=== PATIENT | male | born 1970 | race Two or more races ===

== ENCOUNTER 2024-06-22 00:07 | Emergency (ER) | payer BC ==
[~2024-06-22] VITALS: Ht 167.6 cm; Wt 79.4 kg
[2024-06-22] MEDS ORDERED: ROSUVASTATIN CA20 MG PO (00:53)
[2024-06-22] MEDS ORDERED: METOPROLOL SUCC50 MG PO (00:53)
[2024-06-22] MEDS ORDERED: SERTRALINE HCL50 MG PO (00:53)
[2024-06-22] MEDS ORDERED: BENAZEPRIL HCL10 MG PO (00:53)
[2024-06-22] MEDS ORDERED: ASPIRIN 325 MG TABLET.EC PO STA (01:01)
[2024-06-22] MEDS ORDERED: FAMOTIDINE/PF 20 MG/2 ML VIAL IV PUSH STA (01:07)
[2024-06-22] MEDS ORDERED: ASPIRIN 325 MG TABLET.EC PO ONE (01:12)
[2024-06-22] MEDS ORDERED: FAMOtidine 200mg/20ml VIAL ONE (01:13)
[2024-06-22] MEDS ORDERED: 0.9 % SODIUM CHLORIDE 1,000 ML IV ONE (01:15)
[2024-06-22] MEDS ORDERED: NITROGLYCERIN 0.4 MG TAB.SUBL SL SCH (01:15)
[2024-06-22 01:27] LABS: HEMATOCRIT 38.9 % (39.0-48.0); HEMOGLOBIN 13.5 g/dL (13-16.00); MEAN CELL VOLUME 90.7 fL (80.0-100.00); MEAN CORPUSCULAR HEMOGLOBIN 31.5 pg (27.00-32.0); MEAN CORPUSCULAR HGB CONC 34.7 g/dl (32.0-36.0); PLATELET COUNT 245 K/uL (150-450); RED BLOOD COUNT 4.28 M/uL (4.00-6.00); RED CELL DISTRIBUTION WIDTH 13.1 % (11.5-14.5)
[2024-06-22 01:36] LABS: INR 1.06; PARTIAL THROMBOPLASTIN TIME 29.1 SECONDS (22.0-34.0); PROTHROMBIN TIME 11.1 SECONDS (9.0-11.5)
[2024-06-22 01:59] LABS: ALBUMIN 3.8 gm/dL (3.4-5.0); BILIRUBIN TOTAL 0.29 mg/dL (0.3-1.2); CALCIUM 8.7 mg/dL (8.5-10.1); CREATININE SERUM 1.06 mg/dL (0.70-1.30); GFR 73.36; GLOBULINA 3.1 G/DL (2.4-3.5); POTASSIUM 3.97 mEq/L (3.5-5.1); TOTAL PROTEIN 6.9 gm/dL (6.4-8.2)
[2024-06-22] MEDS ORDERED: NITROGLYCERIN IN 5 % DEXTROSE 50 MG/250 ML BOTTLE IV ONE (03:39)
[2024-06-22] MEDS ORDERED: NITROGLYCERIN 250 ML IV SCH (03:45)
[2024-06-22] MEDS ORDERED: TICAGRELOR 90 MG TABLET PO STA (04:04)
[2024-06-22 08:43] LABS: PH,URINE 6.5 (5.0-8.0); URINE APPEARANCE Clear; URINE BILIRRUBIN Negative (NEGATIVE); URINE BLOOD Negative; URINE COLOR Yellow; URINE GLUCOSE Negative (NEGATIVE); URINE LEUKOCYTE Negative; URINE NITRATE Negative; URINE PROTEIN Negative (NEGATIVE); URINE UROBILINOGEN 0.2 E.U./dl
[2024-06-22 08:45] LABS: URINE BACTERIA 8.8 uL (0.0-1933); URINE RBC 4.1 uL (0.0-20.8); URINE WBC 3.5 uL (0.0-23.2)
[2024-06-22 08:58] LABS: URINE EPITHELIAL CELLS 0.6 uL (0.0-38.8)
[2024-06-22] MEDS ORDERED: ENOXAPARIN SODIUM 80 MG/0.8 ML SYRINGE SUBCUTANEO ONE ×2 (11:45→12:11)
[2024-06-22] MEDS ORDERED: HEPARIN SODIUM,PORCINE 5,000 UNITS/ML VIAL IV ONE ×2 (11:45→12:15)
[2024-06-22] MEDS ORDERED: HEPARIN SODIUM,PORCINE 5,000 UNITS/ML VIAL ONE (12:10)
[2024-06-23] MEDS ORDERED: NITROGLYCERIN IN 5 % DEXTROSE 250 ML IV SCH (09:00)
== END 2024-06-22 12:58 | disposition designated cancer center or children's hospital (05) ==
LOC: ER 00:07
PROVIDERS: General Practice
DX: R07.89 Other chest pain (principal); I10 Essential (primary) hypertension; Z88.0 Allergy status to penicillin